=== PATIENT | female | born 1960 | race Caucasian/White ===

== ENCOUNTER 2017-10-13 17:54 | Emergency (ER) | payer BC ==
[~2017-10-13] VITALS: Ht 165.1 cm; Wt 62.0 kg
[~2017-10-13 17:54] MED LIST: ATOR40TA PO; ERGO2000 PO; FOSA70TA PO; HYDR-3129 PO
[2017-10-13 18:04] VITALS: RESP 18
[2017-10-13 18:07] VITALS: BP 123/56; PULSE 80; RESP 18; TEMP 98.3; O2SAT 98
[2017-10-13] MEDS ORDERED: HYDR-3580 PO (18:12)
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
[2017-10-13] MEDS ORDERED: oxyCODONE/ACETAMINOPHEN 5 MG/325 MG TAB PO ONE (19:00)
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
--- NOTE | 2017-10-13 21:58 | PD ---
Physical Exam Narrative GENERAL: 56 y/o female in no apparent distress SKIN: Focused skin assessment warm/dry. HEAD: Atraumatic. Normocephalic. EYES: Pupils equal and round. No scleral icterus. No injection or drainage. ENT: No nasal bleeding or discharge. Mucous membranes pink and moist. NECK: Trachea midline. cardiac: Regular rate and rhythm RESPIRATORY: No accessory muscle use. No increased effort MUSCULOSKELETAL: No obvious deformities. No clubbing. No cyanosis. NEUROLOGICAL: Awake and alert. No obvious cranial nerve deficits. Motor grossly within normal limits. Normal speech. PSYCHIATRIC: Appropriate mood and affect; insight and judgment normal. Data Data Last Documented VS Vital Signs Date Time Temp Pulse Resp B/P (MAP) Pulse Ox O2 Delivery O2 Flow Rate FiO2 10/13/17 18:07 18 98 Room Air 10/13/17 18:07 98.3 80 123/56 (78) Orders Orders Oxycodone-Acetamin 5-325 Mg (Percocet (10/13/17 19:00) Pelvis, Ap Only (Routine) (10/13/17 ) Spine, Lumbar - Ltd (Ap & Lat) (10/13/17 ) Ct Lumb Spine W/O Contrast (10/13/17 ) TLSO (10/13/17 ) Ed Discharge Order (10/13/17 21:53) [facility] [place] Supervised Visit with CARL: No Interpretation(s) Last 24 hours Impressions Pelvis X-Ray 10/13/17 0000 Signed Impressions: CONCLUSION: There is no evidence of acute fracture. Lumbar Spine X-Ray 10/13/17 0000 Signed Impressions: CONCLUSION: Mild compression superior endplate of L1 and L2 characteristic of fracture age uncertain. MRI is recommended for further evaluation if clinically indicated. Lumbar Spine CT 10/13/17 0000 Signed Impressions: CONCLUSION: 1. Nondisplaced fracture of the superior endplate of L1 without evidence of sp inal canal stenosis Narrative Course Signed over to me to follow imaging and reevaluate. X-ray shows possible lumbar fracture. CT added on. CT shows superior endplate fracture of L1 that is nondisplaced. Will place in TLSO and have follow with neurosurgery. Patient is in agreement to plan. Patient denies any new complaints and states that they are feeling better. Patient happy with care, all questions answered. Patient knows that follow up is incumbent on them and to return to the emergency room immediately if new or worsening symptoms develop. Patient given strict return precautions, vitals reviewed and are normal, agrees to further workup as an outpatient. Diagnosis Primary Impression: Fx lumbar vertebra-closed Qualified Codes: S32.019A - Unspecified fracture of first lumbar vertebra, initial encounter for closed fracture Referrals: Neurosurgeon call for appointment Patient Instructions: General Instructions Additional Instruction: return as needed, tylenol as needed, wear brace Med/Other Pt SpecificInfo: No Change to Meds Disposition: 01 DISCHARGE HOME Condition: Stable Abril Angel MD Oct 13, 2017 21:58
== END 2017-10-13 22:29 | disposition home or self-care (01) ==
LOC: NEPE 17:54
DX: S32.019A Unspecified fracture of first lumbar vertebra, initial encounter for closed fracture (principal); F17.200 Nicotine dependence, unspecified, uncomplicated; G89.29 Other chronic pain; W51.XXXA Accidental striking against or bumped into by another person, initial encounter
CPT/HCPCS: 72100; 72131; 72170; 99284; L0200; L0484